=== PATIENT | male | born 1980 | race African-American/Black ===

== ENCOUNTER 2024-10-10 10:55 | Emergency (ER) | payer OTHER ==
[2024-10-10] MEDS ORDERED: KETOROLAC 30 MG/ML INJ ONE (11:29)
--- NOTE | 2024-10-10 12:20 | ER ---
Nurse's Notes [facility] Name: Khang Boogie Age: 44 yrs Sex: Male : 1980 Arrival Date: 10/10/2024 Time: 10:55 Bed 11 Private MD: Diagnosis: Streptococcal tonsillitis Presentation: 10/10 11:11 Chief complaint: Patient states: Cough, sore throat, runny nose, WISE, lost voice for 2 ll1 weeks. Coronavirus screen: Client denies travel out of the [place] in the last 14 days. cough unrelated to allergies, fatigue, headache, muscle pain, Client presents with at least one sign or symptom that may indicate coronavirus-19. Standard/surgical mask placed on the client. Ebola Screen: Patient denies travel to an Ebola-affected area in the 21 days before illness onset. Initial Sepsis Screen: Does the patient meet any 2 criteria? No. Patient's initial sepsis screen is negative. Does the patient have a suspected source of infection? No. Patient's initial sepsis screen is negative. Risk Assessment: Do you want to hurt yourself or someone else? Patient reports no desire to harm self or others. Onset of symptoms was September 26, 2024. 11:11 Method Of Arrival: Ambulatory ll1 11:11 Acuity: TYRELL 4 ll1 Triage Assessment: 11:13 General: Appears uncomfortable, Behavior is calm, cooperative, appropriate for age. ll1 Pain: Denies pain. EENT: Reports nasal congestion. Neuro: Reports headache. Respiratory: Reports cough that is. Historical: - Allergies: 11:11 No Known Allergies; ll1 - PMHx: 11:11 Diabetes mellitus; Hypertensive disorder; ll1 - PSHx: 11:11 None; ll1 - Immunization history:: Adult Immunizations up to date. - Infectious Disease History:: Denies. - Social history:: Smoking status: Patient denies any tobacco usage or history of. Screenin:24 [facility] ED Fall Risk Assessment (Adult) History of falling in the last 3 months, ap3 including since admission No falls in past 3 months (0 pts) Confusion or Disorientation No (0 pts) Intoxicated or Sedated No (0 pts) Impaired Gait No (0 pts) Mobility Assist Device Used No (0 pt) Altered Elimination No (0 pt) Score/Fall Risk Level 0 - 2 = Low Risk Oriented to surroundings, Maintained a safe environment, Educated pt \T\ family on fall prevention, incl call for assistance when getting out of bed, Assessed \T\ reinforced patient's understanding of fall precautions, Hourly rounding (assess needs \T\ fall precautionary measures) done, Used ambulatory aids as needed (educated on \T\ assisted with). Abuse screen: Denies threats or abuse. Nutritional screening: No deficits noted. Tuberculosis screening: No symptoms or risk factors identified. Assessment: 11:47 Reassessment: No changes from previously documented assessment. Patient and/or family ll1 updated on plan of care and expected duration. Pain level reassessed. Patient is alert, oriented x 3, equal unlabored respirations, skin warm/dry/pink. 12:25 Respiratory: Airway is patent Respiratory effort is even, unlabored, Breath sounds are ap3 clear. EENT: Throat is reddened with gag reflex present. Vital Signs: 11:11 BP 166 / 105; Pulse 89; Resp 18; Temp 98.4; Pulse Ox 100% ; Weight 111.13 kg; Height 6 ll1 ft. 0 in. ; Pain 0/10; 11:11 Body Mass Index 33.23 (111.13 kg, 182.88 cm) ll1 11:11 Pain Scale: Adult ll1 ED Course: 11:02 Patient arrived in ED. sj2 11:05 [facility]-C [facility] dr5 11:05 Kelvin José MD is Attending Physician. dr5 11:13 Triage completed. ll1 11:13 Arm band placed on. ll1 11:37 Group A Streptococcus Rapid Sent. ll1 11:46 Griselda Avalos, RN is Primary Nurse. ll1 11:47 Door closed. PO fluids given. ll1 12:00 Chest Pa And Lat (2 Views) XRAY In Process Unspecified. EDMS 12:25 No provider procedures requiring assistance completed. Patient did not have IV access ap3 during this emergency room visit. 12:26 Patient has correct armband on for positive identification. Bed in low position. Call ap3 light in reach. Side rails up X 1. Provided Education on: discharge instructions. Administered Medications: 11:37 Drug: Ketorolac IM 30 mg IM once Route: IM; Site: right deltoid; ll1 12:26 Follow up: Response: No adverse reaction; Pain is decreased ap3 Medication: 12:26 VIS not applicable for this client. ap3 Outcome: 12:20 Discharge ordered by . dr5 12:25 Discharged to home ambulatory, ap3 12:25 Condition: good 12:25 Discharge instructions given to patient, Instructed on discharge instructions, follow up and referral plans. medication usage, Demonstrated understanding of instructions, follow-up care, medications, Prescriptions given X 1, 12:27 Patient left the ED. ap3 Signatures: Dispatcher [employer] EDMS Cecy Rodriguez RN RN ap3 Griselda Avalos RN RN ll1 Ariel See sj2 Brian Nazario, SENIOR TECHNICAL WRITER-C SENIOR TECHNICAL WRITER-Cdr5
--- NOTE | 2024-10-10 12:20 | EDPHYS ---
Physician Documentation [facility] Name: Khang Boogie Age: 44 yrs Sex: Male : 1980 Arrival Date: 10/10/2024 Time: 10:55 Bed 11 Private MD: ED Physician Kelvin José HPI: 10/10 13:04 This 44 yrs old Black Male presents to ER via Ambulatory with complaints of Cold dr5 Symptoms, Sore Throat. 13:04 Onset: The symptoms/episode began/occurred 2 week(s) ago. Patient is a 44-year-old male dr5 with history of diabetes and hypertension coming in with sore throat and cough this been going on for the past 2 weeks. Patient reports that he has had fever the last couple days. Patient also reports that his son has had the same symptoms for a day that is resolved.. Historical: - Allergies: 11:11 No Known Allergies; ll1 - PMHx: 11:11 Diabetes mellitus; Hypertensive disorder; ll1 - PSHx: 11:11 None; ll1 - Immunization history:: Adult Immunizations up to date. - Infectious Disease History:: Denies. - Social history:: Smoking status: Patient denies any tobacco usage or history of. ROS: 13:04 Constitutional: as per hpi dr5 Exam: 13:04 Constitutional: This is a well developed, well nourished patient who is awake, alert, dr5 and in no acute distress. Head/Face: Normocephalic, atraumatic. Eyes: Pupils equal round and reactive to light, extra-ocular motions intact. Lids and lashes normal. Conjunctiva and sclera are non-icteric and not injected. Cornea within normal limits. Periorbital areas with no swelling, redness, or edema. 13:04 Chest/axilla: Normal chest wall appearance and motion. Nontender with no deformity. No lesions are appreciated. Cardiovascular: Regular rate and rhythm with a normal S1 and S2. Normal PMI, no JVD. No pulse deficits. Respiratory: Lungs have equal breath sounds bilaterally, clear to auscultation. No rales, rhonchi or wheezes noted. No increased work of breathing, no retractions or nasal flaring. Back: No spinal tenderness. No costovertebral tenderness. Full range of motion. Skin: Warm, dry with normal turgor. Normal color with no rashes, no lesions, and no evidence of cellulitis. Neuro: Awake and alert, GCS 15, oriented to person, place, time, and situation. Cranial nerves II-XII grossly intact. Motor strength 5/5 in all extremities. Sensory grossly intact. Cerebellar exam normal. Normal gait. 13:04 ENT: TM's: are normal, Nose: is normal, Mouth: Lips: normal, Oral mucosa: normal, Gums: normal with healthy appearance, Posterior pharynx: Tonsils: with erythema, with exudate, Uvula: normal, Vital Signs: 11:11 BP 166 / 105; Pulse 89; Resp 18; Temp 98.4; Pulse Ox 100% ; Weight 111.13 kg; Height 6 ll1 ft. 0 in. ; Pain 0/10; 11:11 Body Mass Index 33.23 (111.13 kg, 182.88 cm) ll1 11:11 Pain Scale: Adult ll1 MDM: 11:05 Medical Screening Exam initiated dr5 13:04 Differential diagnosis: viral Infection, bacterial infection, URI, pneumonia Strep dr5 Tonsillitis. Data reviewed: vital signs, nurses notes. Data reviewed: lab test result(s), Strep +. I considered the following discharge prescriptions or medication management in the emergency department Medications were administered in the Emergency Department. See MAR. Test considered but Not performed:. Care significantly affected by the following chronic conditions: Diabetes, Hypertension. Care significantly affected by the following Social Determinants of Health: Poor access to healthcare and/or lack of insurance, Poor access to transportation, Problems related to employment. Counseling: I had a detailed discussion with the patient and/or guardian regarding the historical points, exam findings, and any diagnostic results supporting the discharge/admit diagnosis, the presence of at least one elevated blood pressure reading (>120/80) during this emergency department visit, lab results, radiology results, the need for outpatient follow up, for definitive care, an ENT specialist, a family practitioner. ED course: Patient found to be strep positive. Will treat with amoxicillin 500 mg twice a day for 10 days. Recommended alternating Tylenol Motrin as needed for fever or pain. Recommended warm salt water rinses. Complete antibiotics entirely. I did discuss that if son has any symptoms, sore throat, fever to follow-up either back here or urgent care for strep treatment. Throw away toothbrush in the next 2 to 3 days. All questions answered. Strict ER precautions given. 10/10 11:18 Order name: Group A Streptococcus Rapid; Complete Time: 12:05 dr5 10/10 11:18 Order name: Chest Pa And Lat (2 Views) XRAY; Complete Time: 13:04 dr5 Administered Medications: 11:37 Drug: Ketorolac IM 30 mg IM once Route: IM; Site: right deltoid; ll1 12:26 Follow up: Response: No adverse reaction; Pain is decreased ap3 Disposition Summary: 10/10/24 12:20 Discharge Ordered Notes: Location: Home dr5 Condition: Stable dr5 Diagnosis - Streptococcal tonsillitis dr5 Followup: dr5 - With: Emergency Department - When: As needed - Reason: Worsening of condition Followup: dr5 - With: Private Physician - When: 1 - 2 days - Reason: Recheck today's complaints, Continuance of care, Re-evaluation by your physician Discharge Instructions: - Discharge Summary Sheet dr5 - Strep Throat, Adult dr5 Forms: - Medication Reconciliation Form dr5 - Antibiotic Education dr5 - Patient Portal Instructions dr5 - Leadership Thank You Letter dr5 Prescriptions: - Amoxicillin 500 mg Oral capsule - take 1 capsule ORAL route every 12 hours for 10 days; 20 tablet; Refills: 0, dr5 Product Selection Permitted Signatures: Dispatcher [employer] Cecy Lindsey RN RN ap3 Griselda Avalos RN RN ll1 Brian Nazario, SUPERVISOR DAIRY [employer]ITATION-C SUPERVISOR DAIRY SANITATION-Cdr5
[2024-10-10 12:31] VITALS: BP 166/105; TEMP 98.4; O2SAT 100
--- NOTE | 2024-10-10 12:55 | RAD REPORT ---
Procedure: Chest Pa And Lat (2 Views) HISTORY: Cough COMPARISON: none FINDINGS: The lungs appear clear of acute infiltrate. No significant pleural effusion noted. The heart is mildly enlarged. IMPRESSION: No acute abnormality is displayed.
== END 2024-10-10 12:27 | disposition home or self-care (01) ==
LOC: ER 10:55
DX: J03.00 Acute streptococcal tonsillitis, unspecified (principal); R05.9 Cough, unspecified
CPT/HCPCS: 36415; 71046; 96372; 99284